=== PATIENT | female | born 1980 | race Caucasian/White ===

== ENCOUNTER 2020-12-12 12:59 | Emergency (ER) | payer OTHER ==
[2020-12-12] MEDS ORDERED: LIDOCAINE 1% INJ 10MG/ML (20 ML MDV) SQ ONE (13:44)
[2020-12-12] MEDS ORDERED: BACITRACIN OINT 1 EACH PACKET TOPICAL ONE (13:45)
--- NOTE | 2020-12-12 14:31 | ED ---
Skin/Abscess/FB HPI - General Chief complaint: Skin/Abscess/Foreign Body Stated complaint: abscess Time Seen by Provider: 12/12/20 13:15 Source: patient Mode of arrival: ambulatory Limitations: no limitations - History of Present Illness Initial comments: Patient is a 40-year-old female presenting to the emergency Department with complaints of a possible abscess on her left lower groin area. She states is benign for about a week, she got was getting better over the last few days but then yesterday and today the redness is getting worse and she feels like its getting larger in size. She denies any fevers or chills, no nausea or vomiting. She has no further complaints at this time. - Related Data Previous Rx's Medication Instructions Recorded Cephalexin [Keflex] 500 mg PO Q6HR 5 Days #20 cap 12/12/20 Allergies Allergy/AdvReac Type Severity Reaction Status Date / Time codeine Allergy Rash/Hives Verified 12/12/20 13:08 iodine Allergy Rash/Hives Verified 12/12/20 13:08 Penicillins Allergy Rash/Hives Verified 12/12/20 13:08 shellfish derived [Shellfish] Allergy Rash/Hives Verified 12/12/20 13:08 Review of Systems ROS Statement: Those systems with pertinent positive or pertinent negative responses have been documented in the HPI. ROS Other: All systems not noted in ROS Statement are negative. Past Medical History Past Medical History: Hypertension Additional Past Medical History / Comment(s): neck pain, seasonal allergy History of Any Multi-Drug Resistant Organisms: None Reported Past Surgical History: Cholecystectomy, Orthopedic Surgery Additional Past Surgical History / Comment(s): rt ankle, rt arm,back cyst removed, lanie knee ACL, Past Psychological History: Bipolar, PTSD Smoking Status: Former smoker Past Alcohol Use History: None Reported Past Drug Use History: Marijuana General Exam - General Exam Comments Initial Comments: GENERAL: Patient is well-developed and well-nourished. Patient is nontoxic and in no acute distress. HEAD: Atraumatic, normocephalic. EYES: Pupils equal round and reactive to light, extraocular movements intact, sclera anicteric, conjunctiva are normal. Eyelids were unremarkable. ENT: TMs normal, nares patent, oropharynx clear without exudates. Moist mucous memb ranes. NECK: Normal range of motion, supple without lymphadenopathy or JVD. LUNGS: Unlabored respirations. Breath sounds clear to auscultation bilaterally and equal. No wheezes rales or rhonchi. HEART: Regular rate and rhythm without murmurs, rubs or gallops. ABDOMEN: Soft, nontender, normoactive bowel sounds. No guarding, no rebound. No masses appreciated. : Deferred MUSCULOSKELETAL: Normal extremities with adequate strength and normal range of motion, no pitting or edema. No clubbing or cyanosis. NEUROLOGICAL: Patient is alert and oriented x 3. Motor and sensory are also intact. Cranial nerves II through XII grossly intact. Symmetrical smile. Normal speech, normal gait. PSYCH: Normal mood, normal affect. SKIN: Warm, Dry, normal turgor. Patient has a 1 cm abscess to the left groin area, some mild erythema, no spreading erythema mild pain with palpation. Some warmth to the area. Limitations: no limitations Course Vital Signs 12/12/20 13:03 Temperature 98.0 F Pulse Rate 83 Respiratory 20 Rate Blood Pressure 167/109 O2 Sat by Pulse 99 Oximetry Procedures - [place] Protocol (Time Out) Procedure Performed:: I&D Performing Provider: Kylie Martinez Respiratory Therapist: Thelma Whittaker Timeout Date: 12/12/20 Timeout Time: 14:20 Patient Identification (2 identifiers required): Chart, Verbal, Arm Band, Name, Birthdate Patient/Legal Identification And Records Commander has Confirmed: Identity, Site, Procedure, Consent Site: left groin Site Marked: Yes Site Verified With Patient/Guardian: Yes Final Confirmation: Procedure, Site, Laterality, Confirmed w/Provider - Incision & Drainage Consent Obtained: verbal consent, written consent Indication: I&D Site: other (left groin) Size (cm): 1 Anesthetic Used: lidocaine 1% Amount (mLs): 2 I&D Cleaning Method: Alcohol Wipe Scalpel Used: #11 I&D Drainage Obtained: Pus, Blood Culture Obtained?: No Patient Tolerated Procedure: well Medical Decision Making - Medical Decision Making Patient is a 40-year-old female here with a 1 cm by of abscess to the left groin area. Vitals are stable. Written consent was obtained. An I&D was performed to the area, small amount of pus and blood. Patient will be places on a few days of antibiotic. Recommended warm compresses to the area, keep site clean and dry. Patient is stable for discharge. Patient is in agreement with this plan of care. Return parameters were discussed with the patient and they verbalized understanding. Case discussed with Dr. Matthews. Disposition Clinical Impression: Abscess of left groin Disposition: HOME SELF-CARE Condition: Stable Instructions (If sedation given, give patient instructions): Abscess Incision and Drainage (ED) Additional Instructions: Please return to the Emergency Department if symptoms worsen or any other concerns. Take antibiotic as prescribed. Keep area clean and dry, use warm compresses as discussed. Prescriptions: Cephalexin [Keflex] 500 mg PO Q6HR 5 Days #20 cap Is patient prescribed a controlled substance at d/c from ED?: No Referrals: Deion Hardy DO [Primary Care Provider] - 1-2 days Time of Disposition: 14:38
[2020-12-12 15:03] VITALS: BP 155/92; PULSE 84; RESP 17; TEMP 97.9
== END 2020-12-12 15:03 | disposition home or self-care (01) ==
LOC: EC 12:59
DX: L02.214 Cutaneous abscess of groin (principal); I10 Essential (primary) hypertension; Z87.891 Personal history of nicotine dependence; Z88.0 Allergy status to penicillin
CPT/HCPCS: 99282; 10060; J2001